=== PATIENT | male | born 1975 | race Hispanic/Latino ===

== ENCOUNTER 2018-03-05 04:43 | Emergency (ER) | payer BC ==
[2018-03-05 05:15] LABS: BASOPHILS % (AUTO) 0.6 % (0.0-5.0); EOSINOPHILS % (AUTO) 0.6 % (0.0-8.0); HEMATOCRIT 43.3 % (42-54); MEAN CORPUSCULAR HEMOGLOBIN 28.6 pg (27.0-33.0); MEAN CORPUSCULAR HGB CONC 33.2 g/dL (32.0-36.0); MEAN CORPUSCULAR VOLUME 86.1 fL (79-99); MONOCYTES % (AUTO) 6.2 % (3.0-13.0); NEUTROPHILS % (AUTO) 59.6 % (40.0-77.0); PLATELET COUNT (AUTO) 181 K/uL (130-400); RED BLOOD CELL COUNT(AUTO) 5.03 MIL/uL (4.50-6.20); RED CELL DISTRIBUTION WIDTH 13.3 % (11.0-15.5); WHITE BLOOD COUNT (AUTO) 8.3 K/uL (4.8-10.8)
[2018-03-05 05:28] LABS: CREATININE 0.8 mg/dL (0.5-1.5); POTASSIUM 4.1 mmol/L (3.5-5.1)
[2018-03-05 05:32] LABS: ALBUMIN 3.3 g/dL (3.5-5.0); BILIRUBIN,TOTAL 0.4 mg/dL (0.2-1.0); TOTAL PROTEIN, SERUM 7.1 g/dL (6.0-8.3)
[2018-03-05] MEDS ORDERED: ACETAMINOPHEN EXTRA STRENGTH 500 MG TABLET ONE (06:12)
[2018-03-05 06:23] LABS: APPEARANCE,URINE CLEAR (CLEAR); BILIRUBIN,URINE NEGATIVE (NEGATIVE); COLOR,URINE YELLOW (YELLOW); GLUCOSE, URINE (UA) NEGATIVE (NEGATIVE); KETONES,URINE 5 mg/dL (NEGATIVE); LEUKOCYTE ESTERASE ,URINE NEGATIVE (NEGATIVE); NITRATE,URINE NEGATIVE (NEGATIVE); OCCULT BLOOD,URINE TRACE-INTACT (NEGATIVE); PH,URINE 5.5 (5.0-8.0); PROTEIN,URINE TRACE (NEGATIVE); UROBILINOGEN,URINE 0.2 mg/dL (0.2-1.0)
[2018-03-05 06:38] LABS: BACTERIA,URINE Rare /HPF (None Seen)
[2018-03-05 06:39] LABS: MUCUS,URINE Rare LPF (None Seen); RBC,URINE 0-1 /HPF (0-1); WBC,URINE None Seen /HPF (0-1)
[2018-03-05] MEDS ORDERED: ASPIRIN 325 MG TABLET ONE (08:50)
== END 2018-03-05 13:37 | disposition short-term general hospital (02) ==
LOC: EDH 04:43
DX: I63.9 Cerebral infarction, unspecified (principal); R53.1 Weakness; E11.9 Type 2 diabetes mellitus without complications; E78.5 Hyperlipidemia, unspecified; I10 Essential (primary) hypertension; Z79.899 Other long term (current) drug therapy; Z98.890 Other specified postprocedural states
CPT/HCPCS: 36415; 70450; 70544; 70547; 70551; 80053; 81001; 85025; 93005

== ENCOUNTER 2023-06-23 07:47 | Emergency (ER) | payer BC, OTHER ==
[~2023-06-23] VITALS: Ht 177.8 cm; Wt 108.9 kg
[2023-06-23 08:14] LABS: HEMATOCRIT 41.5 % (42-54); MEAN CORPUSCULAR HEMOGLOBIN 29.4 pg (27.0-33.0); MEAN CORPUSCULAR VOLUME 86.5 fL (79-99); RED BLOOD CELL COUNT(AUTO) 4.8 MIL/uL (4.50-6.20); RED CELL DISTRIBUTION WIDTH 12.4 % (11.0-15.5); WHITE BLOOD COUNT (AUTO) 5.8 K/uL (4.8-10.8)
[2023-06-23 08:17] LABS: APPEARANCE,URINE CLEAR (CLEAR); BILIRUBIN,URINE NEGATIVE (NEGATIVE); COLOR,URINE LIGHT-YELLOW (YELLOW); GLUCOSE, URINE (UA) NEGATIVE (NEGATIVE); KETONES,URINE NEGATIVE (NEGATIVE); LEUKOCYTE ESTERASE ,URINE NEGATIVE Leu/uL (NEGATIVE); NITRATE,URINE NEGATIVE (NEGATIVE); OCCULT BLOOD,URINE NEGATIVE (NEGATIVE); PROTEIN,URINE NEGATIVE (NEGATIVE); UROBILINOGEN,URINE 0.2 mg/dL (0.2-1.0)
[2023-06-23 08:20] LABS: ADD UA MICROSCOPIC NO
[2023-06-23 08:22] LABS: CREATININE 0.7 mg/dL (0.5-1.5); POTASSIUM 4.1 mmol/L (3.5-5.1)
[2023-06-23] MEDS ORDERED: ONDANSETRON 4MG INJ IVP ONE (09:00)
[2023-06-23] MEDS ORDERED: 0.9%NACL 1000ML 1,000 ML IV ONE (09:00)
[2023-06-23 10:03] LABS: THYROID STIMULATING HORMONE 1.01 uIU/mL (0.36-3.74)
[2023-06-23] MEDS ORDERED: METO-296 PO (14:52)
[2023-06-23] MEDS ORDERED: MECL-302 PO (14:54)
[2023-06-23 15:06] VITALS: BP 130/72; PULSE 80; RESP 18; O2SAT 98
== END 2023-06-23 15:53 | disposition home or self-care (01) ==
LOC: EDH 07:47
DX: E86.0 Dehydration (principal); R11.10 Vomiting, unspecified; R42 Dizziness and giddiness; E11.9 Type 2 diabetes mellitus without complications; I10 Essential (primary) hypertension
CPT/HCPCS: 99285; 96374; 70450; 71045; 96361; 84443; 83735; 84484; 80048; 85027; 81003; 36415; 74018; 93005; J7030; J2405

== ENCOUNTER → 2024-12-30 | Emergency (ER) | payer BC, OTHER ==
[~2024-12-30] VITALS: Ht 177.8 cm; Wt 117.9 kg
[~2024-12-30] MED LIST: MECL-302 PO; METH-662 PO; METO-296 PO; NAPR-1194 PO
[2024-12-30] MEDS: ORPHENADRINE 60MG/2ML IM ONE (09:35)
--- NOTE | 2024-12-30 11:02 | ERN ---
General Chief Complaint: Back Pain or Injury Stated Complaint: LOWER BACK PAIN Time Seen by MD: 09:05 Source: patient History of Present Illness Initial Comments Patient is a 49-year-old gentleman coming in complaining of right lower extremity discomfort. Per patient he was walking swing he has been. States that he wants something for pain. He does has a history of this happening in the past. Allergies: Coded Allergies: No Known Drug Allergies (Unverified Allergy, Unknown, 06/23/23) Home Meds Active Scripts Meclizine HCl (Meclizine HCl) 25 Mg Tablet, 50 MG PO QIDP PRN for DIZZINESS, #30 TAB 2 Refills Prov:VENANCIO CHRISTOPHER Sr., MD 06/23/23 Metoclopramide HCl (Reglan) 10 Mg Tablet, 10 MG PO QIDP PRN for NAUSEA, #30 TAB 2 Refills Prov:VENANCIO CHRISTOPHER Sr., MD 06/23/23 Past Medical History Past Medical History: Diabetes-Type II, Hypertension Past Surgical History: Other Surgical History Other: RT KNEE ROS Dictation CONSTITUTIONAL: No chills, no fever, no weakness, no diaphoresis, no malaise. HEAD/FACE: No signs of trauma. EENT: No eye pain, no blurred vision, no tearing, no double vision, no ear pain, no ear discharge, no nose pain, no nasal congestion, no throat pain, no throat swelling, no mouth pain. RESPIRATORY: No cough, no orthopnea, no SOB, no stridor, no wheezing. CARDIOVASCULAR: No chest pain, no edema, no palpitations, no syncope. GASTROINTESTINAL/ABDOMINAL: No abdominal pain, no constipation, no diarrhea, no nausea, no vomiting. GENITOURINARY: No abnormal discharge, no dysuria, no frequent urination, no hematuria. No complaints of pain in the genitals. MUSCULOSKELETAL: No back pain, no gout, joint pain, joint swelling, no muscle pain, muscle stiffness, no neck pain. INTEGUMENTARY: No change in color, no change in hair/nails, no dryness, no lesion, no lumps, no rash. NEUROLOGICAL/PSYCH: No anxiety, not depressed, no emotional problem, no headache, no numbness, no pre-existing deficit, no history of seizures, no tremors, no weakness. HEMATOLOGIC/LYMPHATIC: Not anemic, no history of blood clots, no apparent bleeding, no bruising, glands not swollen. All Systems Negative, Except as Noted. Physical Exam Physical Exam Dictation VITAL SIGNS: Reviewed. GENERAL APPEARANCE: Alert, oriented x3, no acute distress, obese. HEAD AND FACE: Non-traumatic. EYES: PERRL, pink conjunctivas, eyelid no trauma, anterior chamber clear. EARS: Pinnas intact and no signs of trauma or erythema. Ear canals clear and no discharge. TMs no erythema. NOSE: No discharge, no bleeding. OROPHARYNX: Mouth normal, teeth no caries, tongue pink. Pharynx clear, no erythema. Tonsils no exudates, no abscesses noted. Mucous membrane moist. NECK: Supple, non-tender, no thyromegaly, no masses, no JVD, no bruits. BREAST: Deferred. CHEST: No tenderness, no crepitus, no paradoxical movement, no retractions. LUNGS: Clear, well-ventilated, symmetric, no rales, no wheezing, no rhonchi, no stridor, good breath sounds bilaterally. HEART: Regular rate, regular rhythm, no murmur, no gallops. VASCULAR: No peripheral edema. ABDOMEN: Soft, positive bowel sounds, nondistended, no guarding, nontender, no rebound, no masses no hepatomegaly, no splenomegaly, no Todd's sign, no hernias. RECTAL: Deferred. GENITAL: Deferred. NEUROLOGICAL: Normal speech, gross motor function intact, gross sensory function intact. MUSCULOSKELETAL: Neck nontender, full range of motion, back nontender, full range of motion. EXTREMITIES: Nontender, full range of motion. Right knee discomfort on palpation SKIN: Color pink, dry, no turgor, no rash, no lacerations, no abrasions, no contusions. LYMPHATICS: Deferred. Results Laboratory and Microbiology Labs Reviewed?: Yes MDM MDM: Differential diagnosis: Muscle strain, history of knee pain Rationale: Tests considered and ordered secondary to shared decision making include: Previous outside records reviewed: Old ER visits. Risk of complication and/or morbidity or mortality of patient management: None Medications-Per medication reconciliation Need for hospitalization: Patient does not meet criteria for hospitalization. Patient is a 49-year-old male coming in complaining of right knee pain. Patient is received antispasmodics and anti-inflammatories. Knee immobilizer will be placed. I advised him appropriate follow up with PCP in 1-2 days for ongoing management. Patient will be discharged in stable condition. ED Course Orders Procedure Category Date Status Time Orphenadrine Citrate PHA 12/30/24 Complete (Norflex) 09:30 Ketorolac PHA 12/30/24 Complete Tromethamine 30mg/Ml 09:30 Triamcinolone Acet PHA 12/30/24 In Process 40mg/Ml 1ml (Kenalog 11:00 Current Medications Medications (Trade) Dose Ordered Sig/Theodora Route PRN Reason Start Time Stop Time Status Last Admin Dose Admin Ketorolac Tromethamine (toRADol) 30 mg ONCE ONCE IM 12/30/24 09:30 12/30/24 09:31 DC 12/30/24 09:36 Orphenadrine Citrate (Norflex) 60 mg ONCE ONCE IM 12/30/24 09:30 12/30/24 09:31 DC 12/30/24 09:35 Triamcinolone Acetonide (Kenalog 40) 40 mg ONCE ONCE IM 12/30/24 11:00 12/30/24 11:01 Vital Signs Date Time Temp Pulse Resp B/P (MAP) Pulse Ox O2 Delivery O2 Flow Rate FiO2 12/30/24 09:47 98.4 64 19 117/65 97 Room Air* 0 21 12/30/24 09:07 98.6 74 18 129/71 99 Room Air 0 DX & DISP Disposition: Discharge Departure Impression: Primary Impression: Knee strain Additional Impression: Chronic knee pain Condition: Stable Scripts Naproxen (Naproxen) 500 Mg Tablet 1 TAB PO BID for pain for 7 Days, #14 TAB 0 Refills Prov: ARASH GAO MD 12/30/24 Methocarbamol (Robaxin) 750 Mg Tab 1 TAB PO BID for 7 Days, #14 TAB 0 Refills Prov: ARASH GAO MD 12/30/24 Additional Instructions: FOLLOW-UP WITH PRIMARY CARE PROVIDER IN 1 TO 2 DAYS. TAKE MEDICATIONS DIRECTED HERE IN THE EMERGENCY ROOM. OKAY TO CONTINUE HOME MEDICATIONS UNLESS OTHERWISE DISCUSSED DURING YOUR VISIT IN THE EMERGENCY ROOM TODAY. RETURN TO YOUR NEAREST EMERGENCY ROOM IF SYMPTOMS WORSEN OR IF THERE IS NO IMPROVEMENT. CALL 911 IF YOU NEED IMMEDIATE ASSISTANCE. TAKE TYLENOL [id number] NEEDED AND IF NO CONTRAINDICATIONS ARE PRESENT. INCREASE ORAL HYDRATION. A WOUND CULTURE OR URINE CULTURE WAS ORDERED HERE IN THE EMERGENCY ROOM DEPARTMENT PLEASE FOLLOW-UP WITH PRIMARY CARE PROVIDER AND ADVISE THEM TO GET REPORTS FROM OUR FACILITY. IF YOU HAD ANY ISI WRAP/SPLINTS THAT WERE APPLIED HERE, PLEASE DO NOT REMOVE THEM UNTIL YOU SEE YOUR PRIMARY CARE OR SPECIALTY. Referrals: Referrals: MIMA DUBOSE MD (PCP) Time of Disposition: 11:00 ARASH GAO MD Dec 30, 2024 11:02
[2024-12-30] MEDS: TRIAMCINOLONE ACETONIDE 40 MG/ML 1ML VIAL IM ONE (11:29)
[2024-12-30 11:33] VITALS: BP 113/64; PULSE 67; RESP 19; TEMP 98.5; O2SAT 99
--- NOTE | 2024-12-30 11:34 | NUR ---
DC PATIENT WAS DC'D BY DR GAO I EXPLAINED TO PATIENT TO FOLLOW UP WITH PCP, EXPLAINED NEW PRESCRIPTIONS AND HOW TO TAKE THEM AND PROVIDED INFO BASED ON DIAGNOSIS, I ALSO ANSWERED ANY QUESTIONS THE PATIENT HAD, PATIENT AMBULATED OUT OF ED, NO COMPLICATIONS
== END ==
LOC: EDH 09:04
DX: S86.911A Strain of unspecified muscle(s) and tendon(s) at lower leg level, right leg, initial encounter (principal); G89.29 Other chronic pain; M25.561 Pain in right knee; E11.9 Type 2 diabetes mellitus without complications; I10 Essential (primary) hypertension; X58.XXXA Exposure to other specified factors, initial encounter; Y93.01 Activity, walking, marching and hiking; Y92.89 Other specified places as the place of occurrence of the external cause; Y99.8 Other external cause status
CPT/HCPCS: 99284; 29505; 96372 ×3; J1885; J3301; J2360